=== PATIENT | male | born 1940 | race Caucasian/White ===

== ENCOUNTER 2017-10-17 20:04 | Inpatient (IN) | payer MEDICARE ==
[~2017-10-17] VITALS: Ht 180.3 cm; Wt 98.6 kg
[~2017-10-17 20:04] MED LIST: ASPI81TA13 PO; CLOP75TA28 PO; GLIM1TAB2 PO; METF-372 PO; NOR10T PO; OXY20CRT PO; TEMA30CA PO; TRAZ150T79 PO
[2017-10-17 22:42] LABS: Basophils # (auto) 0 uL; Basophils % (auto) 0.3 % (0.0-2.0); Eosinophils # (auto) 0.3 uL; Eosinophils % (auto) 3.4 % (0.0-7.0); Hematocrit 35.6 % (41.0-53.0); Hemoglobin 12.2 g/dL (13.5-17.5); Mean Corpuscular Hemoglobin 30.1 pg (28.0-32.0); Mean Corpuscular Hgb Conc. 34.2 g/dL (32.0-36.0); Mean Corpuscular Volume 87.9 fL (80.0-100.0); Monocytes # (auto) 0.4 uL; Monocytes % (auto) 4.9 % (0.0-12.0); Neutrophils # (auto) 7.3 uL; Neutrophils % (auto) 80.4 % (37.0-80.0); Platelet Count (auto) 148 10^3/uL (140-450); Red Blood Cells 4.06 10^6/uL (4.5-5.90); Red Cell Distribution Width 13.4 % (11.8-14.3); White Blood Cell 9.1 10^3/uL (4.4-10.8)
[2017-10-17 22:55] LABS: Partial Thromboplastin Time 35.2 sec (22.64-33.71); Prothrombin Time 10.9 sec (9.37-12.3)
[2017-10-17 23:03] LABS: Albumin 2.5 g/dL (3.4-5.0); Bilirubin, Total 0.7 mg/dL (0.2-1.0); Potassium 4.3 mmol/L (3.5-5.1); Total Protein 6.3 g/dL (6.4-8.2)
[2017-10-18] MEDS ORDERED: MORPHINE SULFATE 4 MG/ML SYR/VIAL IV ONE (02:00)
[2017-10-18] MEDS ORDERED: ONDANSETRON HCL 4 MG/2 ML VIAL IV ONE (02:00)
[2017-10-18] MEDS ORDERED: HYDROcodone-ACET 5/325MG TAB PO PRN (02:15)
[2017-10-18] MEDS ORDERED: ONDANSETRON HCL 4 MG/2 ML VIAL IV PRN (02:15)
[2017-10-18] MEDS ORDERED: ACETAMINOPHEN 500 MG TAB PO PRN (02:15)
[2017-10-18] MEDS ORDERED: NITROGLYCERIN 0.4 MG SL TAB SL PRN (02:15)
[2017-10-18] MEDS ORDERED: MORPHINE SULFATE 4 MG/ML SYR/VIAL IV PRN (02:15)
[2017-10-18 06:09] LABS: Cholesterol 171 mg/dL (< 200); HDL Cholesterol 29 mg/dL (40-59); LDL Cholesterol 114 mg/dL (< 100); Triglycerides 203 mg/dL (< 150)
[2017-10-18 08:00] LABS: Basophils # (auto) 0 uL; Basophils % (auto) 0.3 % (0.0-2.0); Eosinophils # (auto) 0.3 uL; Eosinophils % (auto) 3.6 % (0.0-7.0); Hematocrit 34.6 % (41.0-53.0); Hemoglobin 11.6 g/dL (13.5-17.5); Lymphocytes # (auto) 1.3 uL; Lymphocytes % (auto) 16.6 % (10.0-50.0); Mean Corpuscular Hemoglobin 29.4 pg (28.0-32.0); Mean Corpuscular Hgb Conc. 33.5 g/dL (32.0-36.0); Mean Corpuscular Volume 87.6 fL (80.0-100.0); Monocytes # (auto) 0.4 uL; Monocytes % (auto) 5.7 % (0.0-12.0); Neutrophils # (auto) 5.8 uL; Neutrophils % (auto) 73.8 % (37.0-80.0); Nucleated Red Blood Cells % 0.1 %; Platelet Count (auto) 144 10^3/uL (140-450); Red Blood Cells 3.95 10^6/uL (4.5-5.90); Red Cell Distribution Width 13.3 % (11.8-14.3); White Blood Cell 7.8 10^3/uL (4.4-10.8)
[2017-10-18 08:04] VITALS: BP 140/74
[2017-10-18 08:20] VITALS: BP 140/74
[2017-10-18 08:49] LABS: BUN/Creatinine Ratio 30.2; Calcium 7.9 mg/dL (8.5-10.1); Potassium 3.8 mmol/L (3.5-5.1)
[2017-10-18] MEDS: ASPirin-EC 81 mg tab PO SCH (11:04)
[2017-10-18] MEDS: METOPROLOL TARTRATE 25 MG TAB PO SCH ×2 (11:05→22:13)
[2017-10-18 11:44] VITALS: BP 136/63
[2017-10-18 16:40] VITALS: BP 118/54
[2017-10-18] MEDS ORDERED: DEXTROSE (50%) 50ML SYRG IV PRN (17:00)
[2017-10-18] MEDS ORDERED: CLOPIDOGREL BISULFATE 75 MG TAB PO ONE (17:45)
[2017-10-18] MEDS ORDERED: LISINOPRIL 5 MG TAB PO ONE (17:45)
[2017-10-18] MEDS ORDERED: DIGOXIN 0.125 MG TAB PO ONE (17:45)
[2017-10-18 18:20] LABS: Urine Bacteria NONE SEEN /hpf (None Seen); Urine Blood Negative /uL (Negative); Urine Mucus FEW (None Seen); Urine Specific Gravity 1.023 (1.001-1.035); Urine WBC <1 /hpf (0 - 3)
[2017-10-18] MEDS: ACCU-CHEK COMFORT CURVE STRIP VI SCH ×2 (18:38→22:14)
[2017-10-18] MEDS: InsuLIN REG 1unit/0.01ml Soln (100units/ml) SC SCH ×2 (18:38→22:30)
[2017-10-18] MEDS: HYDROcodone-ACET 5/325MG TAB PO PRN (18:40)
[2017-10-18 21:52] LABS: % Iron Saturation 14.9 % (20-55)
[2017-10-18] MEDS ORDERED: GABAPENTIN 400 MG CAP ONE (21:59)
[2017-10-18 22:00] VITALS: BP 135/50
[2017-10-18] MEDS ORDERED: GABAPENTIN 300 MG CAP PO SCH (22:00)
[2017-10-18] MEDS: ATORVASTATIN 20 MG TAB PO SCH (22:13)
[2017-10-19 05:00] VITALS: BP 135/65
[2017-10-19] MEDS: InsuLIN REG 1unit/0.01ml Soln (100units/ml) SC SCH ×4 (06:33→22:00)
[2017-10-19] MEDS: ACCU-CHEK COMFORT CURVE STRIP VI SCH ×4 (06:33→22:15)
[2017-10-19] MEDS ORDERED: GABAPENTIN 400 MG CAP PO ONE (07:00)
[2017-10-19 08:14] LABS: Albumin 2.4 g/dL (3.4-5.0); BUN/Creatinine Ratio 23.3; Bilirubin, Total 0.6 mg/dL (0.2-1.0); Calcium 8.2 mg/dL (8.5-10.1); Magnesium 1.9 mg/dL (1.6-2.6); Phosphorus 2.7 mg/dL (2.5-4.90); Potassium 3.6 mmol/L (3.5-5.1); Total Protein 5.8 g/dL (6.4-8.2)
[2017-10-19 09:00] VITALS: BP 119/56
[2017-10-19] MEDS: METOPROLOL TARTRATE 25 MG TAB PO SCH ×2 (10:27→22:16)
[2017-10-19] MEDS: CLOPIDOGREL BISULFATE 75 MG TAB PO SCH (10:27)
[2017-10-19] MEDS: DIGOXIN 0.125 MG TAB PO SCH (10:28)
[2017-10-19] MEDS: LISINOPRIL 5 MG TAB PO SCH (10:28)
[2017-10-19] MEDS: ASPirin-EC 81 mg tab PO SCH (10:28)
[2017-10-19 13:00] VITALS: BP 115/56
[2017-10-19] MEDS: GABAPENTIN 400 MG CAP PO SCH ×2 (14:00→22:16)
[2017-10-19 16:57] LABS: Basophils # (auto) 0 uL; Basophils % (auto) 0.4 % (0.0-2.0); Eosinophils # (auto) 0.1 uL; Eosinophils % (auto) 1.4 % (0.0-7.0); Hematocrit 35.9 % (41.0-53.0); Hemoglobin 12.4 g/dL (13.5-17.5); Lymphocytes # (auto) 1.1 uL; Lymphocytes % (auto) 14.7 % (10.0-50.0); Mean Corpuscular Hemoglobin 29.9 pg (28.0-32.0); Mean Corpuscular Hgb Conc. 34.6 g/dL (32.0-36.0); Mean Corpuscular Volume 86.3 fL (80.0-100.0); Monocytes # (auto) 0.5 uL; Monocytes % (auto) 7.2 % (0.0-12.0); Neutrophils # (auto) 5.6 uL; Neutrophils % (auto) 76.3 % (37.0-80.0); Nucleated Red Blood Cells % 0.2 %; Platelet Count (auto) 217 10^3/uL (140-450); Red Blood Cells 4.16 10^6/uL (4.5-5.90); Red Cell Distribution Width 13.3 % (11.8-14.3); White Blood Cell 7.3 10^3/uL (4.4-10.8)
[2017-10-19 17:00] VITALS: BP 121/70
[2017-10-19] MEDS: HYDROcodone-ACET 5/325MG TAB PO PRN (20:10)
[2017-10-19 22:00] VITALS: BP 136/61
[2017-10-19] MEDS: ATORVASTATIN 20 MG TAB PO SCH (22:17)
[2017-10-20] MEDS: HYDROcodone-ACET 5/325MG TAB PO PRN ×3 (02:35→21:15)
[2017-10-20 05:00] VITALS: BP 137/58
[2017-10-20] MEDS: GABAPENTIN 400 MG CAP PO SCH ×3 (06:11→22:14)
[2017-10-20] MEDS: InsuLIN REG 1unit/0.01ml Soln (100units/ml) SC SCH ×4 (06:12→22:15)
[2017-10-20] MEDS: ACCU-CHEK COMFORT CURVE STRIP VI SCH ×4 (06:12→22:14)
[2017-10-20 07:02] LABS: Basophils # (auto) 0 uL; Basophils % (auto) 0.3 % (0.0-2.0); Eosinophils # (auto) 0.2 uL; Eosinophils % (auto) 2.7 % (0.0-7.0); Hematocrit 36.6 % (41.0-53.0); Hemoglobin 12.7 g/dL (13.5-17.5); Lymphocytes # (auto) 1.5 uL; Lymphocytes % (auto) 20.5 % (10.0-50.0); Mean Corpuscular Hgb Conc. 34.7 g/dL (32.0-36.0); Mean Corpuscular Volume 86.6 fL (80.0-100.0); Monocytes # (auto) 0.5 uL; Monocytes % (auto) 7.5 % (0.0-12.0); Neutrophils # (auto) 4.9 uL; Nucleated Red Blood Cells % 0.1 %; Platelet Count (auto) 213 10^3/uL (140-450); Red Blood Cells 4.23 10^6/uL (4.5-5.90); Red Cell Distribution Width 13.4 % (11.8-14.3); White Blood Cell 7.2 10^3/uL (4.4-10.8)
[2017-10-20 07:26] LABS: Albumin 2.7 g/dL (3.4-5.0); BUN/Creatinine Ratio 22.4; Bilirubin, Total 0.7 mg/dL (0.2-1.0); Calcium 8.6 mg/dL (8.5-10.1); Magnesium 2.2 mg/dL (1.6-2.6); Potassium 3.5 mmol/L (3.5-5.1); Total Protein 6.7 g/dL (6.4-8.2)
[2017-10-20 09:00] VITALS: BP 127/63
[2017-10-20] MEDS: ASPirin-EC 81 mg tab PO SCH (10:36)
[2017-10-20] MEDS: CLOPIDOGREL BISULFATE 75 MG TAB PO SCH (10:36)
[2017-10-20] MEDS: DIGOXIN 0.125 MG TAB PO SCH (10:37)
[2017-10-20] MEDS: METOPROLOL TARTRATE 25 MG TAB PO SCH ×2 (10:37→22:16)
[2017-10-20] MEDS: LISINOPRIL 5 MG TAB PO SCH (10:38)
[2017-10-20 13:00] VITALS: BP 131/60
[2017-10-20 16:45] VITALS: BP 132/65
[2017-10-20 20:00] VITALS: BP 131/63
[2017-10-20 22:00] VITALS: BP 131/63
[2017-10-20] MEDS: ATORVASTATIN 20 MG TAB PO SCH (22:14)
[2017-10-21] VITALS (7 sets, daily range): BP systolic 117–142; BP diastolic 62–89
[2017-10-21] MEDS: TEMAZEPAM 15 MG CAP PO PRN ×2 (00:18→23:18)
[2017-10-21] MEDS ORDERED: HYDROmorphone HCL 2 MG/ML VL IV ONE (02:15)
[2017-10-21] MEDS: GABAPENTIN 400 MG CAP PO SCH ×3 (06:10→21:40)
[2017-10-21] MEDS: InsuLIN REG 1unit/0.01ml Soln (100units/ml) SC SCH ×4 (06:54→21:41)
[2017-10-21] MEDS: ACCU-CHEK COMFORT CURVE STRIP VI SCH ×4 (06:54→21:41)
[2017-10-21] MEDS: DIGOXIN 0.125 MG TAB PO SCH (09:13)
[2017-10-21] MEDS: CLOPIDOGREL BISULFATE 75 MG TAB PO SCH (09:13)
[2017-10-21] MEDS: ASPirin-EC 81 mg tab PO SCH (09:13)
[2017-10-21] MEDS: METOPROLOL TARTRATE 25 MG TAB PO SCH ×2 (09:14→21:41)
[2017-10-21] MEDS: LISINOPRIL 5 MG TAB PO SCH (09:14)
[2017-10-21] MEDS: HYDROcodone-ACET 5/325MG TAB PO PRN ×2 (09:15→21:21)
[2017-10-21 11:14] LABS: Free T4 (Free Thyroxine) 1.41 ng/dL (0.89-1.76)
[2017-10-21 11:16] LABS: Folate (Folic Acid) 10.41 ng/mL (5.38-24)
[2017-10-21 11:20] LABS: Folate (Folic Acid) 5.6 ng/mL (5.38-24)
[2017-10-21] MEDS ORDERED: DOCUSATE SOD 100 MG CAP PO PRN (12:00)
[2017-10-21] MEDS: KETOROLAC TROMETH 30 MG/ML 1ML VIAL IV SCH ×2 (12:17→17:33)
[2017-10-21] MEDS: ATORVASTATIN 20 MG TAB PO SCH (21:40)
[2017-10-22] MEDS: KETOROLAC TROMETH 30 MG/ML 1ML VIAL IV SCH ×3 (00:08→12:27)
[2017-10-22] MEDS: HYDROcodone-ACET 5/325MG TAB PO PRN (03:54)
[2017-10-22 05:52] VITALS: BP 132/71
[2017-10-22] MEDS: GABAPENTIN 400 MG CAP PO SCH ×2 (06:05→14:01)
[2017-10-22] MEDS: InsuLIN REG 1unit/0.01ml Soln (100units/ml) SC SCH ×2 (06:19→11:16)
[2017-10-22] MEDS: ACCU-CHEK COMFORT CURVE STRIP VI SCH ×2 (06:19→11:16)
[2017-10-22 08:00] VITALS: BP 143/64
[2017-10-22 09:07] VITALS: BP 143/64
[2017-10-22] MEDS: DIGOXIN 0.125 MG TAB PO SCH (09:31)
[2017-10-22] MEDS: ASPirin-EC 81 mg tab PO SCH (09:32)
[2017-10-22] MEDS: LISINOPRIL 5 MG TAB PO SCH (09:32)
[2017-10-22] MEDS: CLOPIDOGREL BISULFATE 75 MG TAB PO SCH (09:32)
[2017-10-22] MEDS: METOPROLOL TARTRATE 25 MG TAB PO SCH (09:33)
[2017-10-22 13:33] VITALS: BP 138/63
[2017-10-22 14:43] VITALS: BP 138/63
== END 2017-10-22 15:40 | disposition home health service (06) | DRG 280 ==
LOC: ER 20:04 → EDBD 20:04 → EDSEX 20:04 → EDUNIT# 20:05 → TELE 20:05 → TELE-WESTW 10-18 07:30
PROVIDERS: ADMIT Nurse Practitioner Family; ATTEND Internal Medicine Pulmonary Disease
DX: I21.4 Non-ST elevation (NSTEMI) myocardial infarction (principal); G93.41 Metabolic encephalopathy; E44.0 Moderate protein-calorie malnutrition; E11.42 Type 2 diabetes mellitus with diabetic polyneuropathy; E87.1 Hypo-osmolality and hyponatremia; G45.9 Transient cerebral ischemic attack, unspecified; E11.65 Type 2 diabetes mellitus with hyperglycemia; D63.8 Anemia in other chronic diseases classified elsewhere; R91.8 Other nonspecific abnormal finding of lung field; E78.5 Hyperlipidemia, unspecified; I10 Essential (primary) hypertension; I25.10 Atherosclerotic heart disease of native coronary artery without angina pectoris; M06.9 Rheumatoid arthritis, unspecified; M54.12 Radiculopathy, cervical region; I25.2 Old myocardial infarction; Z79.02 Long term (current) use of antithrombotics/antiplatelets; Z79.82 Long term (current) use of aspirin; Z79.899 Other long term (current) drug therapy; Z86.73 Personal history of transient ischemic attack (TIA), and cerebral infarction without residual deficits; Z95.0 Presence of cardiac pacemaker; Z98.1 Arthrodesis status; Z86.718 Personal history of other venous thrombosis and embolism; Z88.0 Allergy status to penicillin; Z88.8 Allergy status to other drugs, medicaments and biological substances; Z68.30 Body mass index [BMI] 30.0-30.9, adult; Z71.6 Tobacco abuse counseling; Z87.891 Personal history of nicotine dependence
CPT/HCPCS: 36415; 70450; 71010; 72125; 80048; 80053; 80061; 81001; 82607; 82746; 82962; 83036; 83540; 83550; 83735; 83880; 84100; 84439; 84443; 84484; 85025; 85610; 85652; 85730; 86592; 87040; 87081; 87086; 87088; 87186; 93005; 93306; 95819; 96374; 96375; 97163; J1815; J1885; J2405